=== PATIENT | female | born 1975 | race Caucasian/White ===

== ENCOUNTER 2024-07-03 08:51 | Day surgery (SDC) | payer MEDICAID ==
[~2024-07-03 08:51] MED LIST: ceFAZolin 2 GM in Sodium Chloride 0.9% 50 ML IV ONE
[2024-07-03] MEDS ORDERED: Albuterol 0.083% 2.5 MG/3 ML Neb Soln NEB PRN (09:00)
[2024-07-03] MEDS ORDERED: Naloxone 0.4 MG/ML SDV IVPUSH PRN (09:00)
[2024-07-03] MEDS ORDERED: Metoclopramide 10 MG/2 ML SDV IVPUSH PRN (09:00)
[2024-07-03] MEDS ORDERED: HYDROmorphone 1 MG/ML Syringe IVPUSH PRN (09:00)
[2024-07-03] MEDS ORDERED: fentaNYL 50 MCG/ML SDV IVPUSH PRN (09:00)
[2024-07-03] MEDS ORDERED: Phenylephrine HCl In 0.9% NaCl 1 MG/10 ML Syringe IVPUSH PRN (09:00)
[2024-07-03] MEDS ORDERED: Morphine 2 MG/ML SYRINGE IVPUSH PRN (09:00)
[2024-07-03] MEDS ORDERED: Ondansetron 4 MG/2 ML SDV IVPUSH PRN (09:00)
[2024-07-03] MEDS: Lactated Ringers 1,000 ML IV SCH (09:15)
[2024-07-03] MEDS ORDERED: Bupivacaine 0.25% 30 ML SDV ONE (09:42)
[2024-07-03] MEDS ORDERED: Lidocaine 1% 5 ML VIAL ONE (09:49)
[2024-07-03] MEDS ORDERED: Lidocaine 1% 20 ML MDV ONE (09:50)
[2024-07-03] MEDS ORDERED: Midazolam 1 MG/ML 2 ML SDV ONE (09:56)
[2024-07-03] MEDS ORDERED: Lidocaine 2% 5 ML SDV ONE (10:01)
[2024-07-03] MEDS ORDERED: Propofol 200 MG/20 ML SDV ONE (10:01)
[2024-07-03] MEDS: Acetaminophen 1,000 MG in Premix Bag 1 BAG IV ONE (11:33)
== END 2024-07-03 12:05 | disposition home or self-care (01) ==
LOC: MW.SDS 08:51
PROVIDERS: ATTEND Orthopaedic Surgery
DX: G56.01 Carpal tunnel syndrome, right upper limb (principal); I10 Essential (primary) hypertension; E66.9 Obesity, unspecified; Z68.30 Body mass index [BMI] 30.0-30.9, adult; Z87.891 Personal history of nicotine dependence; Z88.0 Allergy status to penicillin; Z88.8 Allergy status to other drugs, medicaments and biological substances; Z79.899 Other long term (current) drug therapy
CPT/HCPCS: 64721; J0131; J0665; J2003; J2250; J2704; J7120; 01810; J3490

== ENCOUNTER 2025-03-25 01:47 | Emergency (ER) | payer MEDICAID ==
[2025-03-25] MEDS ORDERED: Sodium Chloride 0.9% 10 ML Syringe FLUSH PRN (01:58)
[2025-03-25] MEDS ORDERED: Sodium Chloride 0.9% 2.5 ML Syringe FLUSH PRN (01:58)
[2025-03-25] MEDS ORDERED: Naloxone 0.4 MG/ML SDV IVPUSH PRN ×2 (02:03→03:13)
[2025-03-25 02:05] LABS: BASOPHILS ABSOLUTE AUTO 0.08 K/uL (0.00-0.20); BASOPHILS PERCENT AUTO 0.6 % (0.0-1.0); EOSINOPHILS ABSOLUTE AUTO 0.18 K/uL (0.00-0.45); EOSINOPHILS PERCENT AUTO 1.3 % (0.0-6.0); IMMATURE GRAN ABSOLUTE AUTO 0.06 K/uL (0.00-0.05); IMMATURE GRAN PERCENT AUTO 0.4 % (0.0-0.4); LYMPHOCYTES ABSOLUTE AUTO 4.10 K/uL (1.00-4.80); LYMPHOCYTES PERCENT AUTO 30.4 % (24.0-44.0); MEAN PLATELET VOLUME 8.7 fL (9.4-12.3); MONOCYTES ABSOLUTE AUTO 0.64 K/uL (0.00-0.80); MONOCYTES PERCENT AUTO 4.7 % (0.0-8.0); NEUTROPHILS ABSOLUTE AUTO 8.43 K/uL (1.80-7.70); NEUTROPHILS PERCENT AUTO 62.6 % (41.0-71.0); NRBC ABSOLUTE 0.00 K/uL (0.00-0.02); NRBC PERCENT 0.0 /100WBC (0.0-0.2); PLATELET COUNT,PLT 285 K/uL (150-400); RED BLOOD CELL COUNT 4.01 M/uL (4.10-5.30); WHITE BLOOD CELL COUNT,WBC 13.49 K/uL (3.9-11.3)
[2025-03-25] MEDS: Ondansetron 4 MG/2 ML SDV IVPUSH ONE ×2 (02:14→08:01)
[2025-03-25 02:16] LABS: INR 0.98 (0.86-1.11); PTT,PARTIAL THROMBOPLSTIN TIME 21.8 SEC (23.9-30.7)
[2025-03-25 02:35] LABS: A/G RATIO 1.0 (0.9-1.6); ALANINE AMINOTRANSFERASE,ALT 19 IU/L (14-63); ASPARTATE AMNIOTRANSFERASE,AST 14 IU/L (15-37); BILIRUBIN TOTAL 0.4 mg/dL (0.2-1.0); BLOOD UREA NITROGEN,BUN 14 mg/dL (7.0-18.0); CARBON DIOXIDE,CO2 27.3 mmol/L (21.0-32.0); CHLORIDE,CL 102 mmol/L (98-107); CREATININE 0.8 mg/dL (0.6-1.0); GLUCOSE RANDOM 163 mg/dL (74-106); POTASSIUM,K 3.2 mmol/L (3.5-5.1); PRO B-TYPE NATRIUR PEPT,BNPPRO 149 pg/mL (0-125); PROTEIN TOTAL,TP 6.7 g/dL (6.4-8.2); SODIUM,NA 137 mmol/L (136-145)
[2025-03-25 02:42] LABS: ESTIMATED GFR 90 mL/min (>60)
[2025-03-25 02:43] LABS: ETHANOL BLOOD MEDICAL < 3.0 mg/dL
[2025-03-25] MEDS: Heparin Sodium 5,000 Units/ML Vial IVPUSH ONE (03:11)
[2025-03-25] MEDS: Heparin Sodium/0.45% NaCl 25,000 UNITS/250 ML BAG IV SCH (03:11)
[2025-03-25] MEDS: Magnesium Sulfate 2 GM/50 mL 2 GM in Premix Bag 1 BAG IV ONE (03:14)
[2025-03-25] MEDS: Prochlorperazine 10 MG/2 ML SDV IVPUSH ONE (03:17)
[2025-03-25 10:37] LABS: APPEARANCE,URINE SLT CLOUDY; GLUCOSE,URINE NEGATIVE (NEGATIVE); OCCULT BLOOD,URINE NEGATIVE (NEGATIVE)
[2025-03-25 10:44] LABS: EPITHELIAL CELLS,URINE FEW (NONE-FEW)
[2025-03-25 10:46] LABS: AMPHETAMINES SCREEN, URINE NEGATIVE (CUTOFF=500); BUPRENORPHINE SCREEN,URINE NEGATIVE (CUTOFF=10); METHADONE SCREEN, URINE NEGATIVE (CUTOFF=200); METHAMPHETAMINES SCREEN, URINE NEGATIVE (CUTOFF=500); OXYCODONE SCREEN,URINE NEGATIVE (CUT0FF=100); PCP SCREEN,URINE NEGATIVE (CUTOFF=25); THC SCREEN,URINE 20 NG/ML NEGATIVE (CUTOFF=50)
== END 2025-03-25 11:55 ==
LOC: MW.ED 01:47
DX: I21.3 ST elevation (STEMI) myocardial infarction of unspecified site (principal); E87.6 Hypokalemia; E83.42 Hypomagnesemia; R79.89 Other specified abnormal findings of blood chemistry; I10 Essential (primary) hypertension; Z90.49 Acquired absence of other specified parts of digestive tract; Z90.710 Acquired absence of both cervix and uterus; Z88.0 Allergy status to penicillin; Z88.5 Allergy status to narcotic agent; Z88.8 Allergy status to other drugs, medicaments and biological substances; Z79.899 Other long term (current) drug therapy; Z75.3 Unavailability and inaccessibility of health-care facilities
CPT/HCPCS: 36415; 71045; 80053; 80305; 80307; 81001; 83690; 83735; 83880; 84484; 85025; 85610; 85730; 93005; 93306; 96365; 96366; 96368; 96375; 96376; 99285; A9270; J0780; J1644; J2270; J2405; J3101; J3475; J7030; 93010; J1171